=== PATIENT | female | born 1955 ===

== ENCOUNTER 2017-02-17 07:58 | Inpatient (IN) | payer BC ==
--- NOTE | 2017-01-25 23:18 | HP ---
CC: Nurse Practitioner, Tess Madrid in [place], [place] ADMISSION HISTORY AND PHYSICAL: DATE OF ADMISSION: 02/17/17 ATTENDING SURGEON: Ilya Matta MD CHIEF COMPLAINT: Morbid obesity. HISTORY OF PRESENT ILLNESS: This is a 61-year-old female who first presented to our office in 2015 for initial bariatric evaluation. Her dietary and weight history are outlined in her chart record. She has completed bariatric evaluation. This included lab work in August 2016 showing a normal serum TSH. Cortisol and vitamin levels were also checked at that time. Workup also included an upper GI study, which was done on 09/21/16 showing a small sliding hiatal hernia. She has comple carmina medically supervised weight loss visits with Dr. Matta and has been seen by the gis consultant. She will initiate her preop diet as of next week. Dr. Matta has discussed with her the indications for surgery, the risks, benefits, and alternatives. She also understands the expected perioperative cou rse and hospital stay. She would like to proceed as scheduled with laparoscopic sleeve gastrectomy. PAST MEDICAL HISTORY: Morbid obesity, degenerative joint disease (primarily her knees, but also hip s), type 2 diabetes, hypertension, hyperlipidemia, obstructive sleep apnea (on CPAP), hypothyroidism , and mild GERD. She has no history of [place] or angina, asthma, or COPD. No personal history of bleed ing or blood clot problems. PAST SURGICAL HISTORY: Previous surgeries include laparoscopic cholecystectomy 2011, C-sections x1 via low midline incision, pilonidal cystectomy, excision of a benign nasal mass, left breast cystect moises, and tonsillectomy remotely. CURRENT MEDICATIONS: 1. Metformin 500 mg b.i.d. 2. Atenolol 50 mg every day.. 3. Lisinopril/hydrochlorothiazide 40/25 mg once daily. 4. Levothyroxine 150 mcg. 5. Diclofenac 75 mg b.i.d. (she will hold after her 02/14/17 dose). 6. Aspirin 81 mg once daily (she will hold after her 02/12/17 dose). 7. Lovastatin 10 mg once daily. 8. Fish oil 1400 mg once daily. 9. Multivitamin once daily. 10. Vitamin B12, 1500 mcg sublingual once daily. DRUG ALLERGIES: PENICILLIN (childhood reaction, possibly rash) (she has taken Ceclor without reacti on). BACTRIM (itching). ADHESIVE TAPE (local reaction); she does tolerate paper tape. FAMILY HISTORY: Noncontributory in terms of anesthesia problems, bleeding, or clotting disorders. SOCIAL HISTORY: The patient is . She has 3 grown children. 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 She is a former smoker of 1-pack per day for 20 years. She quit in 1988. She d rinks alcohol less than once weekly. She denies other recreational drug use. REVIEW OF SYSTEMS: General: No recent constitutional symptoms or acute illnesses. HEENT: Shows ea rly cataract in her left eye. Cardiovascular: Hypertension. She has a past history of heart murmu r and history of palpitations attributed to PVCs. She had a negative stress test in 2013. No recent problems reported. Respiratory: She is treated for sleep apnea. Past smoking history as noted. N o history of asthma. No supplemental oxygen required. GI: Mild GERD symptoms for which she really use [id number] antacids medications, but not daily. No lower GI symptoms. Colonoscopy done in 2009 reportedly with benign polyp removal. : No problems. CLIENT ACCOUNT SPECIALIST: Up-to-date within the past 2 years for pelvic exam and breast exam done in September 2016, all reportedly normal. Musculoskeleta l: No additions to above. Neuropsychiatric: No history of anxiety or depression, stroke, or seizu re disorder. Endocrine: She is treated for hypothyroidism and type 2 diabetes. She does not do fi nger sticks regularly. She does not recall specifically her most recent A1c. PHYSICAL EXAMINATION GENERAL: A well-nourished morbidly obese female, in no acute distress. VITAL SIGNS: Height 62.5 inches, weight 261 pounds, and BMI 47. Temperature 98.4, blood pressure 1 44/84, pulse 78, and respirations 18. HEENT: Pupils are equal and round, reactive. EOMs intact. No conjunctival pallor. Oropharynx: A few missing teeth. Remaining teeth in good repair. No intraoral lesions. NECK: No lymphadenopathy, thyromegaly, or masses. LUNGS: Clear to auscultation. No rales or wheezes. HEART: Regular rate and rhythm. No murmurs appreciated. BREASTS: Not examined. ABDOMEN: Well-healed laparoscopic incisions as well as low midline incision. No palpable masses or organomegaly. Abdomen is soft and nontender. GENITALIA: Not done. RECTAL: Not done. BACK: No spinous process or CVA tenderness. EXTREMITIES: No edema. NEUROLOGICAL: Grossly intact. SKIN: Warm and dry. No suspicious rashes or lesions noted. IMPRESSION: Morbid obesity. PLAN: Laparoscopic sleeve gastrectomy. ESTELLA NGUYEN [id number]/[facility] #: [id number]
[~2017-02-17 07:58] MED LIST: Buffered Lidocaine 1% SYR 3ML* 3 ML/SYR SYRINGE INTRADERM ONE
[2017-02-17] MEDS ORDERED: Heparin VIAL(*) 5000 UNITS/ML VIAL (FIVE THOUSAND) ONE ×2 (08:05→15:25)
[2017-02-17] MEDS ORDERED: ceFAZolin 2 GM PREMIX(*) 2 GM/50 ML BAG IVPB ONE (08:06)
[2017-02-17] MEDS ORDERED: Bupivacaine 0.25% EPI 200,000* 30 ML SDV ONE (10:02)
[2017-02-17] MEDS ORDERED: Scopolamine 1.5 mg* PATCH ONE ×2 (10:13→12:28)
[2017-02-17] MEDS ORDERED: fentaNYL* 50 MCG/ML 5 ML VIAL (250 MCG VIAL) ONE (10:18)
[2017-02-17] MEDS ORDERED: Midazolam* 1 MG/ML 2 ML VIAL (2 MG) ONE (10:18)
[2017-02-17] MEDS ORDERED: Ondansetron INJ* 2 MG/ML VIAL ONE ×2 (10:38→15:25)
[2017-02-17] MEDS ORDERED: Dexamethasone IV* 4 MG/ML 1 ML (4 MG) ONE (10:38)
[2017-02-17] MEDS ORDERED: Lidocaine 2% PF * 5 ML VIAL ONE (10:38)
[2017-02-17] MEDS ORDERED: Propofol* 10 MG/ML 20 ML BTL IV PUSH ONE ×2 (10:38→10:58)
[2017-02-17] MEDS ORDERED: Cisatracurium* 2 MG/ML MDV 5 ML ONE (10:40)
[2017-02-17] MEDS ORDERED: Metoprolol Tartrate IV* 1 MG/ML 5 ML VIAL ONE ×2 (11:14→16:39)
[2017-02-17] MEDS ORDERED: Metoclopramide IV* 5 MG/ML 2 ML VIAL IV PRN (11:25)
[2017-02-17] MEDS ORDERED: Scopolamine 1.5 mg* PATCH TRANSDERM PRN (11:25)
[2017-02-17] MEDS ORDERED: Acetaminophen ADULT LIQ* 650 MG/20.3 ML UDC PO PRN (11:46)
[2017-02-17] MEDS ORDERED: diPHENhydraMINE IV* 50 MG/ML 1 ml VIAL (BENADRYL) SLOW PUSH PRN (11:46)
[2017-02-17] MEDS ORDERED: HYDROcodone/ACET. 7.5/325 LIQ* 15 ML UDC PO PRN (11:46)
[2017-02-17] MEDS ORDERED: HYDROmorphone* 1 MG/ML 1 ML SYR IV PRN (11:46)
--- NOTE | 2017-02-17 11:46 | SURGPN ---
Brief Operative Note - Surgery Procedures: Pre-OP Diagnoses: Clinically severe obesity Post-op Diagnosis: same Procedure: Laparoscopic sleeve gastrectomy Surgeon: Paxton Asst: Mehnaz Anethesia: PRICE Saravia EBL: minimal IVF: 1500cc LR Specimen: portion of stomach Drains: none
[2017-02-17] MEDS ORDERED: hydrALAZINE IV* 20 MG/ML VIAL ONE ×3 (11:47→12:35)
[2017-02-17] MEDS ORDERED: Insulin LISPRO* 1 UNITS UNIT SUBCUT SCH (11:48)
[2017-02-17] MEDS ORDERED: Metoprolol Tartrate IV* 1 MG/ML 5 ML VIAL IV PRN (11:50)
[2017-02-17] MEDS ORDERED: fentaNYL* 50 MCG/ML 2 ML VIAL (100 MCG VIAL) ONE (12:04)
[2017-02-17] MEDS ORDERED: HYDROmorphone* 1 MG/ML 1 ML SYR ONE (12:04)
[2017-02-17] MEDS: fentaNYL* 50 MCG/ML 2 ML VIAL (100 MCG VIAL) IV PRN ×4 (12:06→12:57)
[2017-02-17] MEDS: HYDROmorphone* 1 MG/ML 1 ML SYR IV PRN ×5 (12:09→14:42)
[2017-02-17] MEDS ORDERED: Metoclopramide IV* 5 MG/ML 2 ML VIAL ONE (12:32)
[2017-02-17] MEDS ORDERED: Famotidine IV* 10 MG/ML 2 ML (20 mg) ONE (15:25)
[2017-02-17] MEDS: Heparin VIAL(*) 5000 UNITS/ML VIAL (FIVE THOUSAND) SUBCUT SCH ×2 (15:32→22:13)
[2017-02-17] MEDS: Ondansetron INJ* 2 MG/ML VIAL IV PRN ×2 (15:32→22:13)
--- NOTE | 2017-02-17 16:43 | OP ---
DATE OF OPERATION: 02/17/17 - ROOM #353 DATE OF : 51 SURGEON: Ilya Matta MD MAIL EXAMINER: ESTELLA Hansen ANESTHESIOLOGIST: Dr. Saravia ANESTHESIA: General. PRE-OP DIAGNOSES: 1. Clinically severe obesity. 2. Joint disease. 3. Mild gastroesophageal reflux. 4. Type 2 diabetes. 5. Hypertension. 6. Hypercholesterolemia. 7. Obstructive sleep apnea. POST-OP DIAGNOSES: 1. Clinically severe obesity. 2. Joint disease. 3. Mild gastroesophageal reflux. 4. Type 2 diabetes. 5. Hypertension. 6. Hypercholesterolemia. 7. Obstructive sleep apnea. OPERATIVE PROCEDURE: Laparoscopic sleeve gastrectomy. ESTIMATED BLOOD LOSS: Minimal. FLUIDS: 1500 cc of crystalloid fluid given. SPECIMENS: Portion of stomach. DRAINS: None. COUNTS: Lap pad count and instrument count correct at the end of the procedure. DESCRIPTION OF PROCEDURE: The patient was identified in the preoperative area, marked and case discussed with her and consent was signed. The patient was brought to the operating room and placed on the operating room table in supine position. Preoperative antibiotics were given. Sequential devices were placed on bilateral lower extremities. General anaesthesia was induced and the patient 's abdomen was prepped and draped in a standard surgical fashion. A time-out was performed. Folds of the umbilicus were elevated anteriorly and a Veress needle was inserted into the abdominal cavity, which was then allowed to insufflate to a pressure of 15 mmHg. The patient tolerated insufflation well. [place] between the xiphoid and umbilicus, a 12-mm trocar was inserted. Laparoscope was inserted through this. There was no evidence of injury from the trocar or from the Veress needle, which was then removed. Additional trocars were then placed in the following positions: two 5-mm in the left upper quadrant and an additional 12-mm in the right upper quadrant. The table was placed in a steep reverse Trendelenburg. The liver was somewhat nodular, but mobile. A subxiphoid incision was made and a Azam retractor was inserted and the liver was retracted anteriorly and to the right. This exposed the gastroesophageal fat pad, which was reflected to his right lower quadrant. Blunt and sharp dissection was carried out to expose the left sommer. A retrogastric tunnel was made along the greater curvature, approximately 6 cm from the pylorus. The vasculature to the greater curvature of the stomach was taken with LigaSure device right up to the angle of His. Posterior attachments were similarly taken until the stomach was able to be completely rotated on and along its axis. Next, over 40 bougie that was advanced all the way to the pylorus. The sleeve stomach was created utilizing 60-mm purple EUSEBIO stapling devices with reinforcement strips. Hugging the bougie along its course, the sleeve stomach was completed. The staple line was intact without any corkscrewing. The bougie was easily removed and the stomach was placed in an endoscopic retrieval bag and brought out through the right upper quadrant port site. The Azam retractor was removed. Hemostasis was excellent. The abdomen was allowed to collapse of air. Trocars were removed under direct vision and all 5 skin incisions were reapproximated with skin melissa followed by sterile dressing. The patient tolerated the procedure well and was transferred to the PACU in stable condition. CC: Tess Madrid NP, in [place], [place]; [facility]* [id number]/[facility] #: [id number] [facility]
[2017-02-17] MEDS: Famotidine IV* 10 MG/ML 2 ML (20 mg) IV SLOW PU SCH (17:39)
[2017-02-17] MEDS: Insulin REGULAR(*) 1 UNITS UNIT SUBCUT SCH ×2 (17:39→18:07)
[2017-02-17] MEDS ORDERED: hydrALAZINE IV* 20 MG/ML VIAL IV SLOW PU ONE (19:55)
[2017-02-17] MEDS: Ketorolac INJ* 15 MG/ML 1 ML VIAL IV PRN (20:27)
[2017-02-18] MEDS: Insulin REGULAR(*) 1 UNITS UNIT SUBCUT SCH ×3 (00:03→12:20)
[2017-02-18] MEDS: Famotidine IV* 10 MG/ML 2 ML (20 mg) IV SLOW PU SCH ×2 (03:29→15:30)
[2017-02-18] MEDS ORDERED: Levothyroxine INJ* 100 MCG/5 ML VIAL IV SCH (06:00)
[2017-02-18 06:06] LABS: Hematocrit 41 % (35-47); Hemoglobin 13.3 g/dl (12.0-16.0); Mean Corpuscular HGB Conc 32 g/dl (31-36); Mean Corpuscular Hemoglobin 29 pg (27-31); Mean Corpuscular Volume 91 fL (80-97); Mean Platelet Volume 9 um3 (7.4-10.4); Red Blood Count 4.52 10^6/ul (4.0-5.4); Red Cell Distribution Width 14 % (10.5-15); White Blood Count 11.7 10^3/ul (3.5-10.8)
[2017-02-18] MEDS: Ondansetron INJ* 2 MG/ML VIAL IV PRN (06:11)
[2017-02-18] MEDS: Heparin VIAL(*) 5000 UNITS/ML VIAL (FIVE THOUSAND) SUBCUT SCH ×2 (06:11→14:16)
[2017-02-18] MEDS: Ketorolac INJ* 15 MG/ML 1 ML VIAL IV PRN ×2 (06:11→12:07)
[2017-02-18 06:26] LABS: BUN/Creatinine Ratio 17.1 (8-20); Calcium 9.2 mg/dL (8.6-10.3); EGFR African American 90.6 (>60); EGFR Non-African American 70.4 (>60); Potassium 3.5 mmol/L (3.5-5.0)
--- NOTE | 2017-02-18 08:46 | PN ---
Progress Note - Progress Note SOAP: Subjective: Pt seen and examined. Feeling well. Some nausea nd dry heaves earlier seemingly 2ary to opioids. Ambulating well. Objective: af vss uo good lungs clear abdo: soft/obese/mild tenderness at epigastric incision dressing cdi no calf tenderness labs noted Assessment: POD1 sleeve gastrectomy Plan: UGI today clears possible d/c home tomorrow with follow up next in office
--- NOTE | 2017-02-18 11:06 | RAD ---
INDICATION: 1 day postop gastric sleeve bariatric surgery. COMPARISON: September 21, 2016 upper GI series. TECHNIQUE: 0.6 minutes fluoroscopy. The patient swallowed Gastrografin under fluoroscopic observation. FINDINGS: Delayed emptying of the esophagus with tertiary contractions and delayed relaxation of the lower esophageal sphincter. After contrast reached the stomach it passed across the level of the gastric sleeve to the gastric antrum and duodenum without delay. No evidence for enteric leak. IMPRESSION: 1. Functional esophageal disorder with delayed emptying and tertiary contractions. 2. No evidence for obstruction or enteric leak post gastric sleeve bariatric surgery. CPT II Codes: 6045F
[2017-02-18] MEDS ORDERED: D5W 1/2 NS KCl 20 Meq 1000 ML* 1,000 ML IV SCH (12:00)
[2017-02-18 15:40] VITALS: BP 148/68
--- NOTE | 2017-02-19 02:53 | DS ---
DISCHARGE SUMMARY: DATE OF ADMISSION: 02/17/17 DATE OF DISCHARGE: 02/18/17 ATTENDING SURGEON: Dr. Ilya Matta. (DICTATED BY ESTELLA NGUYEN) HOSPITAL COURSE: Please refer to admission history and physical for admission details. The patient was taken to the operating room on 02/17/17, at which time , she underwent laparoscopic sleeve gastrectomy. Surgery and postoperative course were otherwise uneventful. As of the evening of postop day#2, she was tolerating bariatric clear liquids well. Urine output was good and she is up and ambulating. The pain was controlled with oral medications. PHYSICAL EXAMINATION: Temperature 97.9, blood pressure 148/68, pulse 68, respirations 18, room air saturation 99%. General: Well-nourished, morbidly obese female, in no acute distress. Exam earlier by Dr. Matta showed dressing is clean, dry, and intact with mild tenderness particularly at the epigastric incision. There was no calf tenderness. DISCHARGE MEDICATIONS: As far as discharge medications, she will continue her usual atenolol and levothyroxine. She will hold her metformin and lisinopril/ hydrochlorothiazide. IMPRESSION: Status post sleeve gastrectomy, doing well. PLAN: Okay for discharge this evening. Instructions regarding wound care, diet , and activity were reviewed. She has printed instructions. She has a followup with our office next , 02/25/17. ESTELLA NGUYEN CC: Tess Madrid NP, [place]* [id number]/[facility] [place] #: [id number] [facility]
[2017-02-20] MEDS ORDERED: Scopolomine PATCH Remove* 1 NOTE MISC PATCH OFF ONE (11:25)
== END 2017-02-18 17:15 | disposition home or self-care (01) | DRG 403 ==
LOC: AA 07:58 → SSU 15:06
PROVIDERS: ADMIT Surgery; ATTEND Surgery
PROC: 0DB64Z3 Excision of Stomach, Percutaneous Endoscopic Approach, Vertical (ICD-10-PCS; principal; 2017-02-17 09:30)
DX: E66.01 Morbid (severe) obesity due to excess calories (principal); I10 Essential (primary) hypertension; K44.9 Diaphragmatic hernia without obstruction or gangrene; M17.0 Bilateral primary osteoarthritis of knee; M16.0 Bilateral primary osteoarthritis of hip; E11.9 Type 2 diabetes mellitus without complications; E78.5 Hyperlipidemia, unspecified; G47.33 Obstructive sleep apnea (adult) (pediatric); E03.9 Hypothyroidism, unspecified; K21.9 Gastro-esophageal reflux disease without esophagitis; H26.9 Unspecified cataract; R11.0 Nausea; T40.2X5A Adverse effect of other opioids, initial encounter; Z90.49 Acquired absence of other specified parts of digestive tract; Z88.0 Allergy status to penicillin; Z88.1 Allergy status to other antibiotic agents; Z91.048 Other nonmedicinal substance allergy status; Z87.891 Personal history of nicotine dependence; Z68.42 Body mass index [BMI] 45.0-49.9, adult
CPT/HCPCS: 36415; 74246; 80048; 85025; 88307; 93005; A9270-GY; J0360; J0690; J1100; J1170; J1644; J1885; J2250; J2405; J2704; J3010

== ENCOUNTER 2022-07-21 07:57 | Observation (INO) ==
[~2022-07-21 07:57] MED LIST changes: -Buffered Lidocaine 1% SYR 3ML* 3 ML/SYR SYRINGE INTRADERM ONE; +Buffered Lidocaine 1% SYRIN 1 ml INTRADERM ONE; +Famotidine IV 10 MG/ML 2 ml VIAL (20 mg) IV ONE; +Lactated Ringers 1000 ml BAG 1,000 ML IV SCH
[2022-07-21] MEDS ORDERED: Famotidine IV 10 MG/ML 2 ml VIAL (20 mg) ONE (08:26)
[2022-07-21] MEDS ORDERED: Buffered Lidocaine 1% SYRIN 1 ml INTRADERM ONE (08:26)
[2022-07-21] MEDS ORDERED: Clindamycin 900 MG/D5W BAG 900 MG/50 ML BAG IVPB ONE (08:26)
[2022-07-21 09:28] LABS: Rapid COVID-19 Molecular Undetected (Undetected)
[2022-07-21] MEDS ORDERED: Enalaprilat IV 1.25 mg/ml 1 ml VIAL (1.25 MG) IV ONE ×2 (09:44→10:08)
[2022-07-21] MEDS ORDERED: Enalaprilat IV 1.25 mg/ml 2 ml VIAL (2.5 MG) ONE ×2 (09:48→10:16)
[2022-07-21] MEDS ORDERED: fentaNYL 100 mcg/2 ml 50 MCG/ML VIAL ONE ×3 (10:21→12:41)
[2022-07-21] MEDS ORDERED: Midazolam 5 mg/5 ml VIAL 1 mg/ml 5 ml VIAL (5 mg) ONE (10:21)
[2022-07-21] MEDS ORDERED: ROPIVACAINE 5 MG/ML 30 ML BTL (0.5%) ONE (10:22)
[2022-07-21] MEDS ORDERED: Lidocaine 2% PF 5 ML VIAL ONE ×2 (10:22→10:53)
[2022-07-21] MEDS ORDERED: Ropivacaine 5 MG/ML 20 ML VIAL 0.5% (100 MG) ONE (10:28)
[2022-07-21] MEDS ORDERED: Labetalol IV 5 MG/ML 20 ml VIAL ONE (10:41)
[2022-07-21] MEDS ORDERED: Ondansetron 4 mg VIAL 2 MG/ML 2 ml VIAL ONE ×2 (10:53→15:24)
[2022-07-21] MEDS ORDERED: Dexamethasone IV 4 MG/ML VIAL 1 ml VIAL ONE (10:53)
[2022-07-21] MEDS ORDERED: Propofol 10 MG/ML 20 ML BTL ONE (10:53)
[2022-07-21] MEDS ORDERED: Acetaminophen IV 1 GM/100ML 1,000 MG/100 ML BAG IV ONE (11:47)
[2022-07-21] MEDS ORDERED: fentaNYL 100 mcg/2 ml 50 MCG/ML VIAL IV PRN (11:51)
[2022-07-21] MEDS ORDERED: Naloxone 0.4 mg VIAL 0.4 mg/ml 1 ml VIAL IV PRN (11:51)
[2022-07-21] MEDS ORDERED: HYDROmorphone 1 MG/1 ML SYRINGE IV PRN (11:51)
[2022-07-21] MEDS ORDERED: Ondansetron 4 mg VIAL 2 MG/ML 2 ml VIAL IV PRN ×2 (11:51→12:01)
[2022-07-21] MEDS ORDERED: Magnesium Hydroxide LIQ 30 ML UDC PO PRN (12:01)
[2022-07-21] MEDS ORDERED: Ondansetron ODT 4 mg TAB 4 MG TAB PO PRN (12:01)
[2022-07-21] MEDS ORDERED: Lactulose 30 ml UDC PO PRN (12:01)
[2022-07-21] MEDS ORDERED: Morphine 2 MG/ML SYRINGE IV PRN (12:01)
[2022-07-21] MEDS ORDERED: HYDROmorphone 0.5 MG/0.5 ML SYRINGE ONE ×3 (12:08→12:13)
[2022-07-21] MEDS ORDERED: Lactated Ringers 1000 ml BAG 1,000 ML IV SCH (13:00)
[2022-07-21] MEDS ORDERED: HYDROmorphone 1 MG/1 ML SYRINGE ONE (15:24)
[2022-07-21] MEDS ORDERED: Scopolamine 1 mg/72hr PATCH TRANSDERM SCH (21:00)
[2022-07-21] MEDS ORDERED: CMCS: Lovastatin 10 mg TAB (NF) PO SCH (21:00)
[2022-07-21] MEDS: Magnesium Hydroxide LIQ 30 ML UDC PO SCH (21:18)
[2022-07-21] MEDS: Clindamycin 600 MG/D5W BAG 600 MG/50 ML BAG IV SCH (21:21)
[2022-07-22] MEDS: Clindamycin 600 MG/D5W BAG 600 MG/50 ML BAG IV SCH ×2 (04:30→12:30)
[2022-07-22 06:53] LABS: Hematocrit 36 % (35-47); Hemoglobin 11.9 g/dL (12.0-16.0); Mean Platelet Volume 9.1 fL (7.4-10.4); Platelet Count 154 10^3/uL (150-450)
[2022-07-22 07:06] LABS: Calcium 9.1 mg/dL (8.6-10.3); Potassium 4.4 mmol/L (3.5-5.0)
[2022-07-22 07:12] LABS: eGFR CKD-EPI 88.1 (>60)
[2022-07-22] MEDS: Magnesium Hydroxide LIQ 30 ML UDC PO SCH (08:43)
[2022-07-22] MEDS ORDERED: Vitamin THERAPEUTIC TAB PO SCH (09:00)
[2022-07-22] MEDS ORDERED: Calcium Carb (TUMS) 500 mg CHEW TAB PO PRN (09:36)
[2022-07-22 11:17] VITALS: BP 115/72
== END 2022-07-22 14:22 | disposition home or self-care (01) | DRG 302 ==
LOC: INTOOBSV 07:57 → AA 07:57 → SSU 16:22
PROVIDERS: ADMIT Orthopaedic Surgery Adult Reconstructive Orthopaedic Surgery; ATTEND Orthopaedic Surgery Adult Reconstructive Orthopaedic Surgery

== ENCOUNTER 2022-12-01 07:30 | Observation (INO) ==
[2022-12-02] MEDS ORDERED: Ondansetron 4 mg VIAL 2 MG/ML 2 ml VIAL IV PRN (12:52)
[2022-12-02] MEDS ORDERED: Naloxone 0.4 mg VIAL 0.4 mg/ml 1 ml VIAL IV PRN (12:52)
[2022-12-03] MEDS ORDERED: Buffered Lidocaine 1% SYRIN 1 ml INTRADERM ONE (06:00)
[2022-12-03] MEDS ORDERED: Lactated Ringers 1000 ml BAG 1,000 ML IV SCH (06:00)
[2022-12-03] MEDS ORDERED: Ondansetron 4 mg VIAL 2 MG/ML 2 ml VIAL ONE ×3 (07:01→14:15)
[2022-12-03] MEDS ORDERED: Propofol 10 MG/ML 20 ML BTL ONE (07:01)
[2022-12-03] MEDS ORDERED: fentaNYL 100 mcg/2 ml 50 MCG/ML VIAL ONE ×4 (07:01→15:05)
[2022-12-03] MEDS ORDERED: Dexamethasone IV 4 MG/ML VIAL 1 ml VIAL ONE ×2 (07:01→09:32)
[2022-12-03] MEDS ORDERED: Acetaminophen IV 1 GM/100ML 1,000 MG/100 ML BAG IV ONE (07:01)
[2022-12-03] MEDS ORDERED: Lidocaine 2% PF 5 ML VIAL ONE ×2 (07:01→09:32)
[2022-12-03] MEDS ORDERED: Phenylephrine IV 10 MG/ML 1 ml VIAL ONE (07:01)
[2022-12-03] MEDS ORDERED: Midazolam 2 mg/2 ml VIAL 1 mg/ml 2 ml VIAL (2 mg) ONE (07:02)
[2022-12-03] MEDS ORDERED: Clindamycin 900 MG/D5W BAG 900 MG/50 ML BAG IVPB ONE (08:27)
[2022-12-03] MEDS ORDERED: Bupivacaine 0.5% SDV PF 30ML VIAL ONE (09:32)
[2022-12-03] MEDS ORDERED: Ropivacaine 5 MG/ML 20 ML VIAL 0.5% (100 MG) ONE (10:37)
[2022-12-03] MEDS ORDERED: hydrALAZINE 20 mg/ml 1 ML Vial IV ONE (11:58)
[2022-12-03] MEDS ORDERED: HYDROmorphone 0.5 MG/0.5 ML SYRINGE ONE (12:05)
[2022-12-03] MEDS ORDERED: Morphine 2 MG/ML SYRINGE IV PRN (13:47)
[2022-12-03] MEDS ORDERED: Magnesium Hydroxide LIQ 30 ML UDC PO PRN (13:47)
[2022-12-03] MEDS ORDERED: Lactulose 30 ml UDC PO PRN (13:47)
[2022-12-03] MEDS ORDERED: Ondansetron ODT 4 mg TAB 4 MG TAB PO PRN (13:47)
[2022-12-03] MEDS ORDERED: Ondansetron 4 mg VIAL 2 MG/ML 2 ml VIAL IV PRN (13:47)
[2022-12-03] MEDS: fentaNYL 100 mcg/2 ml 50 MCG/ML VIAL IV PRN ×5 (14:00→15:07)
[2022-12-03] MEDS ORDERED: Dextrose 50% Syringe 50 ml 25 GM/50 ML SYRINGE IV PUSH PRN (14:06)
[2022-12-03] MEDS ORDERED: hydrALAZINE 20 mg/ml 1 ML Vial IV IV SLOW PU PRN (14:17)
[2022-12-03] MEDS ORDERED: HYDROmorphone 1 MG/1 ML SYRINGE ONE (15:21)
[2022-12-03] MEDS: Lactated Ringers 1000 ml BAG 1,000 ML IV SCH (17:25)
[2022-12-03] MEDS: Magnesium Hydroxide LIQ 30 ML UDC PO SCH (19:59)
[2022-12-03] MEDS: Clindamycin 600 MG/D5W BAG 600 MG/50 ML BAG IV SCH (20:02)
[2022-12-03] MEDS ORDERED: LOVASTATIN 10 MG PO SCH (21:00)
[2022-12-04] MEDS: Clindamycin 600 MG/D5W BAG 600 MG/50 ML BAG IV SCH ×2 (03:24→12:57)
[2022-12-04] MEDS: Lactated Ringers 1000 ml BAG 1,000 ML IV SCH (03:25)
[2022-12-04] MEDS ORDERED: Al Hydrox/Mg Hydrox/Simet LIQ 30 ML UDC PO ONE (03:34)
[2022-12-04 07:10] LABS: Hematocrit 34 % (35-47); Hemoglobin 11.2 g/dL (12.0-16.0); Mean Platelet Volume 9.1 fL (7.4-10.4); Platelet Count 218 10^3/uL (150-450)
[2022-12-04 07:24] LABS: Calcium 8.8 mg/dL (8.6-10.3); Creatinine, Serum 0.91 mg/dL (0.51-0.95); Potassium 4.2 mmol/L (3.5-5.0); eGFR CKD-EPI 68.3 (>60)
[2022-12-04] MEDS: Magnesium Hydroxide LIQ 30 ML UDC PO SCH (08:24)
[2022-12-04] MEDS ORDERED: Vitamin THERAPEUTIC TAB PO SCH (09:00)
[2022-12-04 14:14] VITALS: BP 151/76
== END 2022-12-04 14:25 | disposition home or self-care (01) ==
LOC: AA 12-03 08:08 → INTOOBSV 12-03 08:08 → SSU 12-03 16:24
PROVIDERS: ADMIT Orthopaedic Surgery Adult Reconstructive Orthopaedic Surgery; ATTEND Orthopaedic Surgery Adult Reconstructive Orthopaedic Surgery